=== PATIENT | female | born 1980 | race Hispanic/Latino ===

== ENCOUNTER → 2025-01-04 | Outpatient (CLI) | payer OTHER ==
--- NOTE | 2025-01-05 11:25 | HMCSR ---
APPROVED REPORT EXAM: Two-dimensional and M-mode echocardiogram with Doppler and color Doppler. INDICATION ICD: R06.09 Other forms of dyspnea 2D Dimensions RVDd3.2 cmLVEF(%)70.3 (>50%)LVED Vol(simp.)65.4 mL IVSd1.0 (0.7-1.1cm)FS(%)39 %LVES Vol(simp.)26.2 mL LVDd4.1 (3.8-5.6cm)LA (2D)3.4 (1.6-4.0cm)LVEF(%, simp.)60 % PWd0.9 (0.7-1.1cm)Ao Root(2D)2.7 (2.0-3.7cm) LVDs2.5 (2.5-4.0cm)LVOT diam2.1 (1.8-2.4cm) IVC diam1.6 cm M-Mode Dimensions EPSS0.8 cm Aortic Valve AoV Vmax1.4 m/Jasmyn Peak GR8.0 mmHgLVOT Vmax1.0 m/s AoV VTI0.3 mAo Mean GR4.5 mmHgLVOT VTI0.19 m YAKOV (VMAX)2.5 cm2AVA (VTI) 2.5 cm2 Mitral Valve MV E Vmax88.4 cm/sDECEL Hhvg076 ms MV A Vmax57.6 cm/sP 1/2 T69 ms E/A ratio1.5MVA (PHT)3.2 cm2 TDI E/E' Medial6.2 Left Ventricle The left ventricle is normal size. There is normal LV segmental wall motion. There is normal left james tricular wall thickness. LVEF is 60-65%. The left ventricular diastolic function is normal. Right Ventricle The right ventricle is normal size. The right ventricular systolic function is normal. Atria The left atrium size is normal. The right atrium size is normal. Aortic Valve The aortic valve is normal in structure. No aortic regurgitation is present. There is no aortic valvu lar stenosis. Mitral Valve The mitral valve is normal in structure. There is no mitral valve regurgitation noted. There is no mi tral valve stenosis. Tricuspid Valve The tricuspid valve is normal in structure. There is no tricuspid valve regurgitation noted. Pulmonic Valve The pulmonary valve is normal in structure. There is no pulmonic valvular regurgitation. Great Vessels The aortic root is normal in size. The IVC is normal in size and collapses >50% with inspiration. Pericardium There is no pericardial effusion. Conclusion LVEF is 60-65%.
== END | disposition home or self-care (01) ==
LOC: CANPRECLI → RAH 13:31
PROVIDERS: ATTEND Internal Medicine Cardiovascular Disease
DX: R06.09 Other forms of dyspnea (principal)
CPT/HCPCS: 93306